=== PATIENT | female | born 1980 | race Two or more races ===

== ENCOUNTER 2017-08-12 15:15 | Emergency (ER) | payer OTHER ==
[~2017-08-12] VITALS: Ht 149.9 cm; Wt 93.0 kg
[2017-08-12 15:18] VITALS: BP 149/104
[2017-08-12] MEDS ORDERED: Lidocaine 1% MPF 10mg/ml 5ml ONE (15:34)
[2017-08-12] MEDS ORDERED: Lidocaine 1% MPF 10mg/ml 5ml IM ONE (15:45)
--- NOTE | 2017-08-12 15:52 | Emergency Room Report ---
History of Present Illness General Chief Complaint: Back Pain-No Injury Source: Patient Present Illness HPI 37 y/o female c/o right sided back pain x 2 hours ago. 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 States she took 3 alieves w/ improvement with current pain at 5/10. States that pain is worse with movement and better with naproxen. States she has no hx of previous back pain and denies any radiation of pain. Patient denies any numbness, tingling, pressure, paralysis, cyanosis, bruising, loss of sensation, or loss of range of motion.Denies any lower extremity weakness, incontinence, foot drop, saddle anesthesia, numbness, or paralysis. Allergies: Coded Allergies: No Known Allergies (Unverified , 08/12/17) Patient History Past Medical History: see triage record Past Surgical History: none Pertinent Family History: none Last Menstrual Period: 07/05/17 Now: No : 1 Para: 1 Immunizations: UTD Reviewed Nursing Documentation: PMH: Agreed, PSxH: Agreed Nursing Documentation-PMH Past Medical History: No History, Except For Hx Cardiac Problems: No Hx Hypertension: No Hx Pacemaker: No Hx Asthma: No Hx COPD: No Hx Diabetes: No Hx Cancer: No Hx Gastrointestinal Problems: No Hx Dialysis: No History Of Psychiatric Problem: No Hx Neurological Problems: No Hx Cerebrovascular Accident: No Hx Seizures: No Review of Systems All Other Systems: negative except mentioned in HPI Physical Exam Vital Signs Date Time Temp Pulse Resp B/P (MAP) Pulse Ox O2 Delivery O2 Flow Rate FiO2 08/12/17 15:18 98.2 82 16 149/104 98 Room Air Sp02 EP Interpretation: reviewed, normal General Appearance: no apparent distress, alert, GCS 15, non-toxic Head: normocephalic, atraumatic Eyes: bilateral eye normal inspection ENT: normal ENT inspection Neck: full range of motion, no bony tend, supple/symm/no masses Respiratory: chest non-tender, lungs clear, normal breath sounds, speaking full sentences Cardiovascular #1: regular rate, rhythm, no edema Musculoskeletal: back normal, gait/station normal, normal range of motion, tender - right periscapular region with muscle spasm present inferior to the auscelation triangle. Neurologic: alert, oriented x3, responsive, motor strength/tone normal, sensory intact, speech normal Psychiatric: judgement/insight normal, memory normal, mood/affect normal, no suicidal/homicidal ideation Skin: normal color, no rash, warm/dry, well hydrated Lymphatic: no adenopathy Procedures Additional Procedure Procedure Narrative Ricks and benefits discussed and consent was obtained. The area was cleaned using alcohol and using a 27g 1.5" needle, 1.5cc of lidocaine w/o epi was injected into trigger point in right thoracic katie scapular region in a fan like distribution. The site was then covered with a bandaid and the patient was instructed in post procedural care. Patient noted a moderate reduction of pain with increased ROM. Medical Decision Making PA Attestation Dr. Rojas is my supervising physician with whom patient management has been discussed with. Diagnostic Impression: Primary Impression: Thoracic myofascial strain Qualified Codes: S29.019A - Strain of muscle and tendon of unspecified wall of thorax, initial encounter Additional Impression: Muscle spasm of back ER Course Pt. presents to the ED c/o back pain Ddx considered but are not limited to strain, sprain, fracture, radiculopathy, spinal stenosis, contusion, fracture Vital signs: are WNL, pt. is afebrile H&PE are most consistent with thoracic strain ORDERS: Lidocaine w/o epi ED INTERVENTIONS: Trigger point injection DISCHARGE: At this time pt. is stable for d/c to home. Will provide printed patient care instructions, and any necessary prescriptions. Care plan and follow up instructions have been discussed with the patient prior to discharge. Last Vital Signs Date Time Temp Pulse Resp B/P (MAP) Pulse Ox O2 Delivery O2 Flow Rate FiO2 08/12/17 15:18 98.2 82 16 149/104 98 Room Air Status: unchanged Disposition: HOME, SELF-CARE Condition: Improved Scripts Naproxen* (NAPROXEN*) 500 Mg Tablet.dr 500 MG ORAL TWICE A DAY for 10 Days, #20 TAB Prov: SABRY,TAMEEM P.A. 08/12/17 Methocarbamol* (ROBAXIN-750*) 750 Mg Tablet 750 MG PO TID, #30 TAB 0 Refills Prov: SABRY,TAMEEM P.A. 9/30/17 Patient Instructions: Thoracic Strain, Trigger Point Injection Additional Instructions: Take medication as directed. Advise patient to use RICE therapy and avoid exercises for the next 2-3 weeks to help rest the leg. Patient instructed to massage the muscles that are tight or tense, put ice for 5-7 minutes or a frozen bag of peas or cold gel pack on the area for 20 minutes at a time, a few times a day, put heat on the area to reduce pain and stiffness by either taking a hot shower or hot bath, or put a hot towel on the area for no more than 20 minutes at a time. Patient instructed to not use anything too hot that could burn your skin. JASON SIMPSON Aug 12, 2017 15:52
[2017-08-12] MEDS ORDERED: ROBAXIN-750750 MG PO (15:53)
[2017-08-12] MEDS ORDERED: NAPROXEN500 M1 ORAL (15:53)
[2017-08-12 16:00] VITALS: BP 133/91
== END 2017-08-12 16:15 | disposition home or self-care (01) ==
LOC: EMR 15:46
DX: S29.012A Strain of muscle and tendon of back wall of thorax, initial encounter (principal); X50.9XXA Other and unspecified overexertion or strenuous movements or postures, initial encounter; Y93.F2 Activity, caregiving, lifting; Y92.239 Unspecified place in hospital as the place of occurrence of the external cause; Y99.0 Civilian activity done for income or pay; M62.830 Muscle spasm of back
CPT/HCPCS: 99284